=== PATIENT | male | born 1960 | race American Indian/Alaskan Native ===

== ENCOUNTER 2019-01-10 06:06 | Day surgery (SDC) | payer OTHER ==
[~2019-01-10 06:06] MED LIST: LACTATED RINGERS 1,000 ML IV SCH
[2019-01-10] MEDS ORDERED: HYDROmorphone 1 MG/1 ML INJ IV PRN (07:20)
--- NOTE | 2019-01-10 07:25 | Anesthesia Consultation ---
Anesthesia Consult and Med Hx Date of service: 01/10/19 - Airway Anesthetic Teeth Evaluation: Good ROM Head & Neck: Adequate Mental/Hyoid Distance: Adequate Mallampati Class: Class II Intubation Access Assessment: Probably Good - Pulmonary Exam CTA: Yes - Cardiac Exam Cardiac Exam: RRR - Pre-Operative Health Status ASA Pre-Surgery Classification: ASA2 Proposed Anesthetic Plan: General - Pulmonary Hx Smoking: Yes (STOPPED 1976) Hx Respiratory Symptoms: No COPD: No Hx Sleep Apnea: Yes (noncompliant with CPAP) - Cardiovascular System Hx Hypertension: No Hx Heart Attack/AMI: No - Central Nervous System CVA: No Hx Back Pain: Yes - Gastrointestinal Hx Gastroesophageal Reflux Disease: Yes (asymptomatic today) - Endocrine Hx Renal Disease: No Hx Liver Disease: No Hx Insulin Dependent Diabetes: No Hx Non-Insulin Dependent Diabetes: No Hx Thyroid Disease: No - Other Systems Hx Obesity: Yes - Additional Comments Anesthesia Medical History Comments: No hx anesthetic complications.
--- NOTE | 2019-01-10 07:25 | Anesthesia Day of Surgery ---
Anesthesia Day of Surgery - Day of Surgery Patient Examined: Yes Patient H&P Reviewed: Yes Patient is NPO: Yes
[2019-01-10] MEDS ORDERED: PROPOFOL 200 MG/20 ML VIAL IV ONE (07:58)
[2019-01-10] MEDS ORDERED: LIDOCAINE MPF (2%) 20 MG/1 ML VIAL 5 ML ONE (07:58)
[2019-01-10] MEDS ORDERED: fentaNYL 100 MCG/2 ML INJ ONE (07:58)
[2019-01-10] MEDS ORDERED: MIDAZOLAM 2 MG/2 ML INJ IV NR (08:00)
[2019-01-10] MEDS ORDERED: ceFAZolin/Water 2 GM/20 ML 2 GM/20 ML SYRINGE IV NR (08:00)
[2019-01-10] MEDS ORDERED: dexAMETHasone 20 MG/5 ML VIAL ONE (08:36)
[2019-01-10] MEDS ORDERED: ONDANSETRON 4 MG/2 ML INJ ONE (08:36)
[2019-01-10] MEDS ORDERED: WATER FOR IRRIG STERILE 2000 ML IR ONE (08:48)
--- NOTE | 2019-01-10 08:54 | Post Operative Note ---
Date of procedure: 01/10/19 Pre-op diagnosis: bph Post-op diagnosis: same Findings: middle lobe Procedure: rezum Anesthesia: GETA Surgeon: NIXON JUÁREZ Estimated blood loss: minimal Pathology: none Condition: stable Disposition: PACU
--- NOTE | 2019-01-10 08:55 | Discharge Summary ---
Short Stay Discharge Plan Activity: other (no straining ) Weight Bearing Status: Full Weight Bearing Diet: low fat, low cholesterol, low salt Special Instructions: other (harmon care ) Durable Medical Equipment Needed Upon Discharge: other (harmon) Follow up with: PRIMARY CARE, [Primary Care Provider] - 7 Days NIXON JUÁREZ MD [Staff Physician] - 7 Days
--- NOTE | 2019-01-10 09:09 | Operative Report ---
PREOPERATIVE DIAGNOSIS: Bladder outlet obstruction, middle lobe. POSTOPERATIVE DIAGNOSIS: Bladder outlet obstruction, middle lobe. PROCEDURE: Resume therapy. SURGEON: Dr. Ryan. ANESTHESIA: General. FINDINGS: This is a gentleman who is 58 years old, did not want to have a TURP. He has middle lobe, which is about 2 cm just right at the bladder neck, ball valving the bladder neck. He now presents for treatment. DESCRIPTION OF PROCEDURE: The patient was brought to the operating room and placed on the operating table. Following induction of anesthesia, placed in lithotomy position, prepped and draped in usual sterile fashion. Cystourethroscopy showed moderate trabeculation with his middle lobe, right at the central zone. The resume instrument was primed and easily placed. There was some elevation of the bladder neck. We used 2 treatments on both lateral sides of the middle lobe, the one in the central aspect of the middle lobe. Then, we used 2 treatments, 1 on each side. The lateral lobes were not that long about 2.5-3 cm. The patient tolerated the procedure well. A Alvarado catheter was placed. He was brought to recovery room, family notified. JOB# [id number] VIELKA/MAXIMO
[2019-01-10 11:21] VITALS: BP 122/77
--- NOTE | 2019-01-10 13:32 | Post Anesthesia Evaluation ---
- Post Anesthesia Evaluation Patient Participated: Yes Airway Patent: Yes Stable Respiratory Function: Yes Nausea/Vomiting: No Temp > 96.8F: Yes Pain Manageable: Yes Adequeate Hydration: Yes Anesthesia Complications: No Block Receding Appropriately: Not Applicable Patient on Ventilator: No
== END 2019-01-10 06:07 | disposition home or self-care (01) ==
LOC: OR 06:06
PROVIDERS: ATTEND Urology
DX: N32.0 Bladder-neck obstruction (principal); G43.909 Migraine, unspecified, not intractable, without status migrainosus; E78.00 Pure hypercholesterolemia, unspecified; G47.30 Sleep apnea, unspecified; K21.9 Gastro-esophageal reflux disease without esophagitis; E66.9 Obesity, unspecified; Z87.891 Personal history of nicotine dependence; Z79.899 Other long term (current) drug therapy; Z88.2 Allergy status to sulfonamides; Z68.31 Body mass index [BMI] 31.0-31.9, adult; Z96.651 Presence of right artificial knee joint; Z98.890 Other specified postprocedural states
CPT/HCPCS: 53854; A4217; J1100; J1170; J2405; J2704; J3010; J7120